=== PATIENT | male | born 1970 | race African-American/Black ===

== ENCOUNTER 2020-05-19 07:44 | Emergency (ER) | payer MEDICAID ==
[~2020-05-19] VITALS: Ht 182.9 cm; Wt 86.0 kg
[2020-05-19] MEDS ORDERED: SODIUM CHLORIDE 0.9% 1,000 ML IV ONE (08:15)
[2020-05-19] MEDS ORDERED: MORPHINE SULFATE 4 MG/ML CPJ (NOT FOR IM USE) IV STA (08:15)
[2020-05-19] MEDS ORDERED: ONDANSETRON HCL 4MG/2ML INJ IV STA (08:15)
[2020-05-19 08:41] LABS: CHLORIDE 105 mEq/L (98-107)
[2020-05-19 08:44] LABS: PROTHROMBIN TIME 10.9 sec (9.6-11.0)
[2020-05-19 08:47] LABS: BASOPHILS % 0.7 % (0.0-2.0); EOSINOPHILS % 5.6 % (0.0-5.0); HEMOGLOBIN. 15.4 g/dL (14.0-18.0); LYMPHOCYTES % 22.5 % (20.0-50.0); MEAN CORPUSCULAR HEMOGLOBIN 32.9 pg (28.0-32.0); MEAN CORPUSCULAR VOLUME 96.4 fL (80.0-94.0); MEAN PLATELET VOLUME 8.5 fl (7.4-10.4); MONOCYTES % 9.9 % (2.0-8.0); NEUTROPHILS % 61.3 % (40.0-76.0); PLATELET 226 x1000/uL (130-400); RED BLOOD CELL COUNT 4.67 mill/uL (4.7-6.1); RED CELL DISTRIBUTION WIDTH 13.4 % (11.6-14.6)
[2020-05-19 10:46] VITALS: BP 140/80
== END 2020-05-19 10:47 | disposition home or self-care (01) ==
LOC: ER 07:44
DX: N20.0 Calculus of kidney (principal); F12.10 Cannabis abuse, uncomplicated; F16.10 Hallucinogen abuse, uncomplicated; J45.909 Unspecified asthma, uncomplicated; F17.210 Nicotine dependence, cigarettes, uncomplicated
CPT/HCPCS: 36415; 74176; 80053; 83690; 85025; 85610; 93005; 99285; J7030; J2270; J2405